=== PATIENT | female | born 1990 | race Caucasian/White ===

== ENCOUNTER 2020-02-18 07:00 | Day surgery (SDC) | payer OTHER ==
[~2020-02-18] VITALS: Ht 162.6 cm; Wt 55.3 kg
--- NOTE | ~2020-02-18 | OR ---
[facility] [address], [place] [address] Draft DATE OF OPERATION: 02/18/2020 SURGEON: Miguel A Lugo DO PREOPERATIVE DIAGNOSES: 1. History of cervical insufficiency. 2. Intrauterine at 13 weeks gestation. POSTOPERATIVE DIAGNOSES: 1. History of cervical insufficiency. 2. Intrauterine at 13 weeks gestation. PROCEDURE PERFORMED: History indicated Maldonado cerclage. RECEPTION INTERVIEWER: Ede Rivero MD. ANESTHESIA: Spinal. ESTIMATED BLOOD LOSS: 20 mL. FINDINGS: Normal external genitalia. Normal-appearing vagina and cervix. The cervix appears thick and closed. No abnormal discharge. Bedside ultrasound confirms viable intrauterine pre and postoperatively. Maldonado cerclage was placed without difficulty with no evidence of rupture of membranes or other complications. COMPLICATIONS: None. INDICATIONS: Ms. Alexandre is a very pleasant 29-year-old, G5, P3-2-1-3 with intrauterine in 13th week, who presents for cerclage placement. The patient had history of painless cervical dilation, spontaneous rupture of membranes at 24 weeks. In her subsequent , she had an emergency cerclage of 24 weeks, placed. Third , she had a prophylactic cerclage placed around 14 weeks and was able to carry to 39 weeks gestation. We reviewed Maldonado cerclage including risks, benefits, and alternatives. PATIENT NAME: KELLIE ALEXANDRE OPERATIVE REPORT DATE OF : 86 REPORT #: [id number] PHYSICIAN: MIGUEL A LUGO DO PCP: NO PRIMARY CARE PHYSICIAN REPORT IS CONFIDENTIAL AND NOT TO BE RELEASED WITHOUT AUTHORIZATION [facility] [address], [place] [address] Draft The patient understands and wishes to proceed with procedure. TECHNIQUE: The patient was taken to the operating room where a time-out was performed to confirm correct patient and correct procedure. Spinal anesthesia was adequately established. The patient was prepped and draped in dorsal lithotomy position with feet in Yellofin stirrups. ICPs were on running and no preoperative antibiotics or heparin were indicated. A weighted speculum was placed in vagina and the anterior lip of the cervix was grasped with an Allis clamp. The cervix appears long and thick. Visible scarring from prior Maldonado cerclage is evident. The cervix was closely examined and vaginal reflection identified. Mersilene tape was then sutured in a pursestring manner circumferentially around the cervix going through scar tissue from prior Maldonado cerclage. The cerclage was then tied at 1 o'clock. Bleeding scant and Allis clamp was removed. The patient was then taken to PACU in good and stable condition. Of note, a bedside ultrasound was performed just prior to the procedure and at completion of the procedure that confirmed viable intrauterine . Dr. Rivero was present and participated in all portions of the procedure. DO PHILL Thakkar/MARYCHUY /[id number] Copies: ~ PATIENT NAME: KELLIE ALEXANDRE OPERATIVE REPORT DATE OF : 86 REPORT #: [id number] PHYSICIAN: MIGUEL A LUGO DO PCP: NO PRIMARY CARE PHYSICIAN REPORT IS CONFIDENTIAL AND NOT TO BE RELEASED WITHOUT AUTHORIZATION
[~2020-02-18 07:00] MED LIST: BUPRENORPHINE HC2 MG SL; PRENATAL VITAM1 EACH PO
--- NOTE | 2020-02-18 09:39 | NUR ---
02/18/20 0939 Hollie Schmidt 0925- PT ARRIVES TO PACU SITTING UP ALERT AND ORIENTED. PT REPORTS NO PAIN, REPORTS NAUSEA. FLUIDS WIDE OPEN BY REBECCA ANDREA CRNA. RESP EVEN AND UNLABORED. OXYGEN SAT HIGH 90'S TO 100% ON RA. 0933- DR. LAI AT THE BEDSIDE TO TALK WITH THE PT. 0937- PT REPORTS HER NAUSEA TO HAVE SUBSIDED. PT REQUESTING APPLE JUICE. APPLE JUICE PROVIDED. PT TOLERATING WELL.
--- NOTE | 2020-02-18 09:57 | NUR ---
PT ARRIVES TO DS RM 12 FROM PACU AWAKE AND ALERT. PT DENIES ANY PAIN OR NAUSEA, TOLERATES APPLE JUICE. PT PROVIDED ICED WATER AND PUDDING PER REQUEST. YORDAN HUGGER PLACED ON WARM. DC CRITERIA EXPLAINED TO PT. CALL LIGHT WITHIN REACH.
--- NOTE | 2020-02-18 11:06 | NUR ---
PT TOLERATES CRACKERS AND PUDDING WITH NO NAUSEA. PT STATES ZERO PAIN WHEN ASKED. PT RESTING IN BED ON PERSONAL CELL PHONE WITH YORDAN HUGGER IN PLACE. CALL LIGHT WITHIN REACH, WILL CONTINUE TO MONITOR SPINAL.
--- NOTE | 2020-02-18 13:40 | NUR ---
PT STATES SHE CAN FEEL HER FEET AND MOVES THEM FOR THIS RN. PT STATES PAIN IS STILL 5/10 AND REQUESTS PAIN MEDICATION. PT ENCOURAGED TO TRY VOIDING, PROVIDED BEDSIDE COMMODE. PT STANDS AT SIDE OF BED AND STATES WANTING TO WALK TO BATHROOM. PT AMBULATES WITH STEADY GAIT AND RN ASSIST. PT ABLE TO VOID 400 MLS YELLOW URINE. PT BACK TO ROOM 12, STATES VOIDING HELPED WITH PAIN "A LITTLE BIT" BUT IS STILL CRAMPING. PT PROVIDED PAIN MEDICATION, SEE EMAR. PT PROVIDED WARM BLANKET ACROSS ABD TO AID WITH PAIN. CALL LIGHT WITHIN REACH, WILL CONT TO MONITOR.
--- NOTE | 2020-02-18 14:30 | NUR ---
PT RESTLESS IN BED, STATES PAIN IS "WORSE THAN OTHER TWO CERCLAGES." PT RATES PAIN 3/10 WITH PAIN MEDICATION BUT IS AFRAID PAIN WILL BE UNBEARABLE WITHOUT STRONGER PAIN MEDICATION. THIS RN WILL FOLLOW UP WITH DR. LAI. CALL LIGHT WITHIN REACH.
--- NOTE | 2020-02-18 14:54 | NUR ---
DR. LAI NOTIFIED OF PT STATUS, WILL COME DOWN AND ASSESS PATIENT.
--- NOTE | 2020-02-18 15:49 | NUR ---
PT RESTING IN BED ON RIGHT SIDE, STATES PAIN IS GONE IN SPECIFIC POSITION. PT ROTATES TO BACK, STATES PAIN 2/10 AND "BEARABLE" TO GO HOME. DR. LAI NOTIFIED OF PT STATUS, AGREES PT MAY DC HOME. PT DRESSES SELF, DC INSTRUCTIONS PRESENTED TO PT. PT NOTIFIES BOYFRIEND FOR SAFE RIDE HOME. PT TRANSFERRED VIA WC TO MAIN ENTRANCE OF HOSPITAL TO HOME.
== END 2020-02-18 16:05 | disposition home or self-care (01) ==
LOC: OPS 07:00 → DS 07:00 → OPS 08:15
PROVIDERS: Obstetrics & Gynecology
PROC: 0UVC0ZZ Restriction of Cervix, Open Approach (ICD-10-PCS; principal; 2020-02-18 08:15)
DX: O34.31 Maternal care for cervical incompetence, first trimester (principal); Z3A.13 13 weeks gestation of pregnancy; Z79.899 Other long term (current) drug therapy; Z98.84 Bariatric surgery status
CPT/HCPCS: 00948; J1100; J1885; J2001; J2250; J2405; J2704; J3010; J7121

== ENCOUNTER 2020-08-17 09:55 | Inpatient (IN) | payer OTHER ==
[~2020-08-17] VITALS: Ht 162.6 cm; Wt 62.6 kg
--- NOTE | ~2020-08-17 | OR ---
[facility] [address], [place] [address] Draft DATE OF OPERATION: 08/18/2020 SURGEON: Miguel A Lugo DO PREOPERATIVE DIAGNOSES: 1. Intrauterine at 39 weeks gestation. 2. History of cervical insufficiency, status post cerclage. 3. History of prior . 4. History lap band. 5. Buprenorphine in . 6. Rh negative. POSTOPERATIVE DIAGNOSES: 1. Intrauterine at 39 weeks gestation. 2. History of cervical insufficiency, status post cerclage. 3. History of prior . 4. History lap band. 5. Buprenorphine in . 6. Rh negative. PROCEDURE PERFORMED: 1. Repeat low transverse delivery. 2. Cerclage removal. ANESTHESIA: Spinal. ESTIMATED BLOOD LOSS: 700 mL. RETAIL GIFT CARD MERCHANDISING: Laly Dodson DO. FINDINGS: Delivery of viable female , 6 pounds 4 ounces with Apgars of 9 and 9. Normal uterus, tubes, and ovaries. Cerclage removed without difficulty with a normal-appearing cervix. Lap band port in place in the abdominal wall. COMPLICATIONS: None. PATIENT NAME: KELLIE ALEXANDRE OPERATIVE REPORT DATE OF : 86 REPORT #: [id number] PHYSICIAN: MIGUEL A LUGO DO PCP: NO PRIMARY CARE PHYSICIAN REPORT IS CONFIDENTIAL AND NOT TO BE RELEASED WITHOUT AUTHORIZATION [address], [place] [address] Draft INDICATIONS: Ms. Alexandre is a pleasant 30-year-old, G5, P2-1-1-4 female, who presents for cerclage removal and repeat low transverse delivery. is complicated by history of cervical insufficiency and Maternal- Medicine placed a Maldonado cerclage earlier in her . No signs of labor or cervical insufficiency in this . She also has a history of prior and lap band. She was consented for a repeat low transverse delivery with cerclage removal. Risks, benefits, and alternatives were discussed in detail with the patient. The patient understands and wishes to proceed with procedure. TECHNIQUE: The patient was taken to the operating room where a time-out was performed to confirm correct patient and correct procedure. Spinal anesthesia was adequately established. The patient was prepped and draped in dorsal lithotomy position with feet in Yellofin stirrups. ICPs were on and running and no preoperative heparin was indicated. The patient received Ancef 2 g and no heparin was indicated. The patient was then prepped and draped in the dorsal lithotomy position with the feet in Yellofin stirrups. Weighted speculum was placed in vagina and the anterior lip of the cervix was grasped with an Allis clamp. The Maldonado cerclage was grasped with uterine packing forceps and the one side of the knot was cut with surgical scissors. The cerclage was removed and noted to be complete. A Messer catheter was then inserted and the patient was prepped and draped in the supine position with a bump under the right hip. After confirming the spinal was adequate, a Pfannenstiel skin incision was made and dissected down to the fascia. Fascia was nicked in the midline and fascial incision was extended bilaterally using curved Ryder scissors. Kochers were placed on the fascia and the underlying rectus was dissected bluntly and sharply. The rectus was divided in the midline. The peritoneum was entered bluntly. Survey of the abdomen and pelvis was performed, demonstrates no intraabdominal or pelvic adhesions and a normal-appearing gravid uterus. The lap band port was palpated in the abdominal wall. An Mitchell self retractor was placed and the lower uterine segment identified. Hysterotomy was performed using a surgical scalpel and hysterotomy was extended bilaterally using blunt dissection. Amniotic sac was then ruptured for clear fluid. The fetus head was then gently delivered into the abdominal cavity with the assistance of fundal pressure. No nuchal cord was identified and the was delivered without complication. Cord was doubly clamped and cut. The handed to the waiting pediatric team for further care. Cord blood was obtained for routine analysis. The placenta was then manually expressed intact with a centrally inserted three-vessel cord. Bleeding was scant and the patient received Pitocin per protocol. The uterine cavity was cleared of any remaining products of conception or clot. Hysterotomy was then repaired using 0 Vicryl in a running locked manner with 0 Monocryl and a second imbricating suture of 0 Monocryl was applied with good hemostasis. The pelvis was irrigated and found to be hemostatic. The Mitchell self PATIENT NAME: KELLIE ALEXANDRE OPERATIVE REPORT DATE OF : 86 REPORT #: [id number] PHYSICIAN: MIGUEL A LUGO DO PCP: NO PRIMARY CARE PHYSICIAN REPORT IS CONFIDENTIAL AND NOT TO BE RELEASED WITHOUT AUTHORIZATION [facility] [address], [place] [address] Draft retractor was removed and the pelvis remained hemostatic. ACell sheet was applied to the lower uterine segment and peritoneum was reapproximated using 2-0 Vicryl in a running nonlocked manner. Rectus was made hemostatic with judicious use of Bovie electrocautery and reapproximated loosely with interrupted sutures of 0 Vicryl. The fascia was reapproximated using 0 Vicryl in a running nonlocked manner after ACell powder was applied to the rectus sheath. Subcu was examined and made hemostatic with judicious use of Bovie electrocautery. Skin was then reapproximated using surgical henri. The patient was taken to the PACU in good and stable condition after the uterus was Crede'd for scant blood. Sponge, needle, and instrument count were correct x2 at the end of the procedure. Dr. Dodson was present and participated in all portions of procedure. Miguel A Lugo DO JDW/MODL /[id number] Copies: ~ PATIENT NAME: KELLIE ALEXANDRE OPERATIVE REPORT DATE OF : 86 REPORT #: [id number] PHYSICIAN: MIGUEL A LUGO DO PCP: NO PRIMARY CARE PHYSICIAN REPORT IS CONFIDENTIAL AND NOT TO BE RELEASED WITHOUT AUTHORIZATION
--- NOTE | 2020-08-18 06:39 | NUR ---
PT WAS SWABBED FOR COVID 19 FULL PPE DONNED SAMPLE SENT TO LAB
--- NOTE | 2020-08-18 11:42 | NUR ---
08/18/20 1142 Patricia Almonte 1138 PATIENT ARRIVES TO ROOM AWAKE, TALKING WITH STAFF APPROPRIATELY. RESP EVEN AND UNLABORED, ROOM AIR SAT >95%. DENIES PAIN OR NAUSEA.
--- NOTE | 2020-08-19 12:05 | PR ---
[facility] [address], [place] [address] Signed PP Progress Notes Datetime Report Generated by CPJack: 08/19/2020 12:05 SUBJECTIVE: [id number] Pain: Within Normal Limits Flatus: No Bowel Movement: No Vital Signs: [id number] Vital Signs: Reviewed; Within Normal Limits Cardiovascular: Normal Respiratory: Normal Abdomen/Uterus: Normal Lochia: Normal Extremities: Normal Incision: Normal Progress: Normal Exam Comments: fundus firm, dressing in place. RRR, no clicks/murmurs/rubs CTAB No lower extremity edema, negative kristyn's IMPRESSION/PLAN/PROCEDURES: [id number] Impression: Normal Progression Plan: Continue Present Management Progress Notes: POD#1 s/p cerclage removal and RLTCS -progressing well -pain well-controlled -ambulating, voiding, tolerating regular diet. -baby in nursery for glucose monitoring Acute on chronic anemia: Hgb 7.9 this am, asymptomatic and VSS. Discussed iron infusion, declines at this time due to being asymptomatic. Discussed low threshold to infuse if she developes chest pain/shortness of breath/dizziness/lightheadedness/disproportionate fatigue Continue current management Signing Physician: Rafat Dodson DO *Electronically Signed* 08/19/20 2588 RAFAT DODSON DO PATIENT NAME: KELLIE ALEXANDRE PROGRESS NOTE DATE OF : 86 PHYSICIAN: RAFAT DODSON DO RPT #: [id number] REPORT IS CONFIDENTIAL AND NOT TO BE RELEASED WITHOUT AUTHORIZATION [facility] [address], [place] [address] Signed Copies: ~ *Electronically Signed* 08/19/20 1205 RAFAT DODSON DO PATIENT NAME: KELLIE ALEXANDRE PROGRESS NOTE DATE OF : 86 PHYSICIAN: RAFAT DODSON DO RPT #: [id number] REPORT IS CONFIDENTIAL AND NOT TO BE RELEASED WITHOUT AUTHORIZATION
--- NOTE | 2020-08-20 11:48 | PR ---
[facility] [address] [facility] [place], [place] [address] Signed PP Progress Notes Datetime Report Generated by CPN: 08/20/2020 11:48 SUBJECTIVE: [id number] Pain: Within Normal Limits Nausea/Vomiting: Denies Flatus: Yes Bowel Movement: No Vital Signs: [id number] Vital Signs: Reviewed; Within Normal Limits Notable Details: In nursery with baby Cardiovascular: Normal Respiratory: Normal Abdomen/Uterus: Normal Lochia: Normal Extremities: Normal Incision: Normal Progress: Normal Exam Comments: RRR CTAB Incision dressing still in place IMPRESSION/PLAN/PROCEDURES: [id number] Impression: Normal Progression Plan: Continue Present Management Progress Notes: POD#2 s/p RLTCS -progressing well -pain well-controlled with orals -baby to remain inpatient through Saturday Acute on chronic anemia of -remains asymptomatic -reviewed iron infusion, pt declines at this time Anticipate DC to boarder status tomorrow Signing Physician: Rafat Dodson DO Copies: *Electronically Signed* 08/20/20 1148 RAFAT DODSON DO PATIENT NAME: KELLIE ALEXANDRE PROGRESS NOTE DATE OF : 86 PHYSICIAN: RAFAT DODSON DO RPT #: [id number] REPORT IS CONFIDENTIAL AND NOT TO BE RELEASED WITHOUT AUTHORIZATION [address], [place] [address] Signed ~ *Electronically Signed* 08/20/20 1148 RAFAT DODSON DO PATIENT NAME: KELLIE ALEXANDRE ARUNA PROGRESS NOTE DATE OF : 86 PHYSICIAN: RAFAT DODSON DO RPT #: [id number] REPORT IS CONFIDENTIAL AND NOT TO BE RELEASED WITHOUT AUTHORIZATION
--- NOTE | 2020-08-21 09:53 | PR ---
[facility] [facility] [address] [facility] [place] [address] Signed PP Progress Notes Datetime Report Generated by BIRAN: 08/21/2020 09:53 SUBJECTIVE: [id number] Pain: Within Normal Limits Nausea/Vomiting: Denies Flatus: Yes Bowel Movement: No Vital Signs: [id number] Vital Signs: Reviewed; Within Normal Limits Notable Details: In nursery with baby EXAM: Ongoing Cardiovascular: Normal Respiratory: Normal Abdomen/Uterus: Normal Lochia: Normal Breasts: Normal Extremities: Normal Incision: Normal Progress: Normal Exam Comments: RRR CTAB Incision dressing still in place IMPRESSION/PLAN/PROCEDURES: [id number] Impression: Normal Progression Plan: Continue Present Management; Remove [place]; Discharge Procedures: Rhogam Progress Notes: POD#3 s/p RLTCS + cerclage removal -progressing well - well Maternal Rh negative -s/p rhogam Asymptomatic anemia -hgb 7.9 postop, VSS, asymptomatic, pt declines iron infusion Chronic opioid use -discussed pain mgmt plan *Electronically Signed* 08/21/20 0953 RAFAT DODSON DO PATIENT NAME: KELLIE ALEXANDRE PROGRESS NOTE DATE OF : 86 PHYSICIAN: RAFAT DODSON DO RPT #: [id number] REPORT IS CONFIDENTIAL AND NOT TO BE RELEASED WITHOUT AUTHORIZATION [address] [place] [address] Signed -pt reports she is on buprenorphine for her pain because she does not like the way percocet makes her feel, verbalizes understanding that she will not get refills on her pain medication. Signing Physician: Rafat Dodson DO Copies: ~ *Electronically Signed* 08/21/20 0953 RAFAT DODSON DO PATIENT NAME: KELLIE ALEXANDRE PROGRESS NOTE DATE OF : 86 PHYSICIAN: RAFAT DODSON DO RPT #: [id number] REPORT IS CONFIDENTIAL AND NOT TO BE RELEASED WITHOUT AUTHORIZATION
== END 2020-08-21 13:10 | disposition home or self-care (01) | DRG 787 ==
LOC: FBC 08-18 06:12
PROVIDERS: ADMIT Obstetrics & Gynecology; ATTEND Obstetrics & Gynecology
PROC: 3E0T3BZ Introduction of Anesthetic Agent into Peripheral Nerves and Plexi, Percutaneous Approach (ICD-10-PCS; 2020-08-18)
PROC: 3E0T33Z Introduction of Anti-inflammatory into Peripheral Nerves and Plexi, Percutaneous Approach (ICD-10-PCS; 2020-08-18)
PROC: 10D00Z1 Extraction of Products of Conception, Low, Open Approach (ICD-10-PCS; principal; 2020-08-18 08:30)
PROC: 0UCC7ZZ Extirpation of Matter from Cervix, Via Natural or Artificial Opening (ICD-10-PCS; 2020-08-18 08:30)
PROC: 3E0234Z Introduction of Serum, Toxoid and Vaccine into Muscle, Percutaneous Approach (ICD-10-PCS; 2020-08-19)
DX: O34.211 Maternal care for low transverse scar from previous cesarean delivery (principal); O99.355 Diseases of the nervous system complicating the puerperium; O99.324 Drug use complicating childbirth; N85.8 Other specified noninflammatory disorders of uterus; Z3A.39 39 weeks gestation of pregnancy; Z37.0 Single live birth; G89.18 Other acute postprocedural pain; Z20.822 Contact with and (suspected) exposure to COVID-19; O99.02 Anemia complicating childbirth; D64.9 Anemia, unspecified; O26.893 Other specified pregnancy related conditions, third trimester; O99.844 Bariatric surgery status complicating childbirth; F11.10 Opioid abuse, uncomplicated; Z67.11 Type A blood, Rh negative; Z87.891 Personal history of nicotine dependence
CPT/HCPCS: 76942; 83030; 85027; 86850; 86900; 86901; A9270; C9803; J0690; J1100; J1885; J2001; J2274; J2370; J2405; J2590; J2790; J2795; J3010; J7120; U0003